=== PATIENT | male | born 1955 | race Caucasian/White ===

== ENCOUNTER 2019-05-13 12:01 | Inpatient (IN) | payer MEDICARE, BC ==
[~2019-05-13 12:01] MED LIST: Nitroglycerin 0.4 MG Tab.SL SL PRN; Ondansetron 4 MG Tab.DIS PO PRN
[2019-05-13] MEDS: Furosemide 20 MG Tab PO SCH (19:10)
[2019-05-13] MEDS: Metoprolol Tartrate 25 MG Tab PO SCH (20:17)
[2019-05-13] MEDS: Acyclovir 400 MG Tab PO SCH (20:17)
[2019-05-13] MEDS: glipiZIDE 5 MG Tab.ER PO SCH (20:18)
[2019-05-13] MEDS: guaiFENesin 600 MG Tab.ER PO SCH (20:18)
[2019-05-13] MEDS: metFORMIN 500 MG Tab PO SCH (21:17)
[2019-05-14] MEDS: Pantoprazole 40 MG Tab.CR PO SCH (06:35)
[2019-05-14] MEDS: Polyethylene Glycol 3350 Powder 17 GM Packet PO SCH (08:43)
[2019-05-14] MEDS: glipiZIDE 5 MG Tab.ER PO SCH ×2 (08:43→17:46)
[2019-05-14] MEDS: Cholecalciferol (Vitamin D3) 25 MCG Tab PO SCH (08:43)
[2019-05-14] MEDS: Potassium Chloride 20 MEQ Packet PO SCH (08:43)
[2019-05-14] MEDS: Metoprolol Tartrate 25 MG Tab PO SCH ×2 (08:44→21:29)
[2019-05-14] MEDS: Aspirin 81 MG Tab.EC PO SCH (08:44)
[2019-05-14] MEDS: guaiFENesin 600 MG Tab.ER PO SCH ×2 (08:45→21:29)
[2019-05-14] MEDS: Amiodarone 200 MG Tab PO SCH (08:46)
[2019-05-14] MEDS: Acyclovir 400 MG Tab PO SCH ×2 (08:46→21:29)
[2019-05-14] MEDS: atorvaSTATin 40 MG Tab PO SCH (08:46)
[2019-05-14] MEDS: Clopidogrel 75 MG Tab PO SCH (08:46)
[2019-05-14] MEDS: metFORMIN 500 MG Tab PO SCH ×2 (08:46→17:47)
[2019-05-14] MEDS: Furosemide 20 MG Tab PO SCH ×2 (08:47→15:49)
[2019-05-14] MEDS: Sulfamethoxazole/Trimethoprim 800-160 MG Tab PO SCH (08:49)
[2019-05-14] MEDS ORDERED: FERROUS FUMARATE PO SCH (09:00)
[2019-05-14] MEDS ORDERED: VITAMIN C PO SCH (09:00)
[2019-05-14 11:13] LABS: ANION GAP 13.5 mmol/L (5-15); CHLORIDE,CL 100 mmol/L (98-115); SODIUM,NA 139 mmol/L (136-145)
[2019-05-14] MEDS ORDERED: Magnesium Hydroxide 400 MG/5 ML Susp 30 ML Cup PO ONE (11:13)
[2019-05-14] MEDS: Calcium Citrate/Vitamin D3 315 MG-250 Unit Tab PO SCH ×3 (12:27→17:46)
[2019-05-14] MEDS: Ascorbic Acid 500 MG Tab PO SCH (12:48)
[2019-05-14] MEDS: Ferrous Sulfate 325 MG Tab PO SCH (12:48)
[2019-05-14] MEDS: Albuterol/Ipratropium 3.0-0.5 MG/3 ML Neb Soln NEB SCH ×3 (12:58→21:30)
--- NOTE | 2019-05-14 13:31 | CR ---
[id number] RAD/RAD Chest PA And Lateral EXAM: RAD Chest PA And Lateral CLINICAL DATA: COARSE BREATH SOUNDS COMPARISON: CORRELATION IS MADE WITH THE EXAM OF APRIL 07, 2011 FINDINGS: Cardiac surgical changes now are seen Old rib fractures are identified bilaterally There is pleural change on the right There is no pneumonia or edema The cardiomediastinal contour is slightly enlarged since the last exam IMPRESSION: PLEURAL REACTION AT BOTH LUNG BASES PERHAPS CHRONIC OLD RIB FRACTURES. SURGICAL CHANGES Brendan Nevarez MD 05/14/19 [id number] Thank you for allowing us to participate in the care of your patient.
--- NOTE | 2019-05-14 15:17 | HP ---
A chest x-ray will be obtained today due to the coarse lung sounds. The patient is agreeable to this and wishes to proceed. Lab results are pending and will be communicated to the next note. /[id number]/MODL
--- NOTE | 2019-05-14 15:32 | HP ---
HISTORY OF PRESENT ILLNESS: This is a 64-year-old male, who was transferred here from the [facility] in [place], [place]. The patient was discharged from [facility] yesterday and admitted here yesterday. The patient had a coronary artery bypass graft performed on 05/06/2019. Four vessels were bypassed. Following the surgery, Mr. Pereyra was transferred to the Cardiac Surgical Intensive Care Unit. He was extubated and intravenous medications were weaned as tolerated. Aspirin and Plavix were initiated postoperatively. He went into atrial fibrillation postoperatively, requiring IV amiodarone and magnesium. His last bout of atrial fibrillation was on 05/08/2019 and he maintained sinus rhythm until discharge. Physical and occupational therapy were consulted postoperatively and recommended an acute rehabilitation facility upon discharge. Social Work was consulted, and arranged for swing bed in the [facility]. The patient is using oxygen 1 L per nasal cannula at night to maintain oxygen saturations greater than 88%. The patient has a midsternal incision, which is healing without erythema, edema, or drainage. He has a right lower leg saphenous vein site, which is healing without erythema, edema, or drainage. The patient has multiple myeloma and is being considered for a stem cell transplant. Previous records that we had received had mentioned that he was status post stem cell transplant. However, this is a clarification: HE HAS NOT RECEIVED STEM CELL TRANSPLANT. He has a history of chronic low back pain and is on a fentanyl patch as well as oxycodone. He has diabetes mellitus and is taking metformin as well as glipizide. He has gastroesophageal reflux disease and is taking pantoprazole for that as well as GI protection. He has hypokalemia and is taking potassium supplementation. As previously mentioned, he has coronary artery disease and is status post four-vessel coronary artery bypass grafting. He is taking Plavix and metoprolol. He takes furosemide, which was ordered 20 mg by mouth b.i.d. for 5 days. He had postoperative atrial fibrillation, was placed on amiodarone orally, which he continues to be on. He is on a combination of Plavix and aspirin. He has a history of hypercholesterolemia and is taking atorvastatin. The patient has a followup at the [facility] on 06/03/2019 to resume discussion regarding stem cell transplant. However, he does not feel as though he is ready for this at this time. He wants to completely heal from his coronary artery bypass grafting surgery prior to being considered for stem cell transplant. The patient seems to be in fairly good spirits. He does cry easily, however. He reports quite a bit of sternal pain, especially when he is coughing. He states he is coughing up clear mucus on a regular basis. He is using his incentive spirometry. He is also using an inhaler called Aerobika, I am not familiar with this and we will do some research on this. He has not had any nebulizer treatments today. PHYSICAL EXAMINATION: VITAL SIGNS: He is afebrile at 96.9, pulse is 89, respirations 22, blood pressure 123/73, oxygen saturation is 93% on room air. SKIN: Warm and dry to touch. CARDIAC: Reveals S1, S2 to be normal. Rate and rhythm are regular. No murmur, click, or gallop is auscultated. He has a midsternal incision, which is clean and dry without any erythema, edema, or drainage. LUNGS: Sounds are coarse throughout and he does have a productive cough. ABDOMEN: Soft, somewhat distended. EXTREMITIES: Right lower extremity has a harvest saphenous vein grafting site, which is healing without erythema, edema, or drainage. The patient states that he has scratched this before, however, it looks like it is healing well. There is no pedal edema. IMPRESSION: 1. Status post coronary artery bypass grafting on 05/06/2019. The patient seems to be doing well. I think his biggest challenge at this point, especially with the productive cough and a coarse lung sound is prevention of pneumonia. He is being meticulous with his pulmonary toilet with incentive spirometry. We will add DuoNeb nebulizer treatments every 4 hours. 2. Multiple myeloma. He is being considered for stem cell transplant. However, this has not been performed as of yet. 3. Diabetes mellitus. An A1c will be checked today as well as a CBC, CMP. 4. Congestive heart failure. He is on Lasix. A BNP will be checked today. In research by the very competent nursing staff, we did research the Aerobika inhaler that the patient is using. It is an oscillating positive expiratory pressure therapy system and the patient is using this quite often as well. The remainder of his chronic diseases are stable at this time. We will monitor him in swing bed until he is ready for discharge. /[id number]/MODL MTDD
[2019-05-15] MEDS: Albuterol/Ipratropium 3.0-0.5 MG/3 ML Neb Soln NEB SCH ×5 (01:10→17:10)
[2019-05-15] MEDS: Pantoprazole 40 MG Tab.CR PO SCH (06:25)
[2019-05-15] MEDS: Ascorbic Acid 500 MG Tab PO SCH (08:30)
[2019-05-15] MEDS: Cholecalciferol (Vitamin D3) 25 MCG Tab PO SCH (08:30)
[2019-05-15] MEDS: glipiZIDE 5 MG Tab.ER PO SCH ×2 (08:30→17:58)
[2019-05-15] MEDS: Acyclovir 400 MG Tab PO SCH ×2 (08:30→20:45)
[2019-05-15] MEDS: Ferrous Sulfate 325 MG Tab PO SCH (08:30)
[2019-05-15] MEDS: Calcium Citrate/Vitamin D3 315 MG-250 Unit Tab PO SCH ×2 (08:30→17:58)
[2019-05-15] MEDS: metFORMIN 500 MG Tab PO SCH ×2 (08:30→17:58)
[2019-05-15] MEDS: atorvaSTATin 40 MG Tab PO SCH (08:30)
[2019-05-15] MEDS: Aspirin 81 MG Tab.EC PO SCH (08:31)
[2019-05-15] MEDS: Clopidogrel 75 MG Tab PO SCH (08:31)
[2019-05-15] MEDS: Furosemide 20 MG Tab PO SCH ×2 (08:31→15:09)
[2019-05-15] MEDS: guaiFENesin 600 MG Tab.ER PO SCH ×2 (08:40→20:46)
[2019-05-15] MEDS: Polyethylene Glycol 3350 Powder 17 GM Packet PO SCH (08:41)
[2019-05-15] MEDS: Potassium Chloride 20 MEQ Packet PO SCH (08:41)
[2019-05-15] MEDS: Amiodarone 200 MG Tab PO SCH (08:47)
[2019-05-15] MEDS: Metoprolol Tartrate 25 MG Tab PO SCH ×2 (08:47→20:45)
[2019-05-16] MEDS: Albuterol/Ipratropium 3.0-0.5 MG/3 ML Neb Soln NEB SCH ×5 (00:28→22:47)
[2019-05-16] MEDS: Acetaminophen 500 MG Tab PO PRN (05:19)
[2019-05-16] MEDS: Pantoprazole 40 MG Tab.CR PO SCH (06:26)
[2019-05-16] MEDS: glipiZIDE 5 MG Tab.ER PO SCH ×2 (08:09→18:15)
[2019-05-16] MEDS: Calcium Citrate/Vitamin D3 315 MG-250 Unit Tab PO SCH (08:09)
[2019-05-16] MEDS: Cholecalciferol (Vitamin D3) 25 MCG Tab PO SCH (08:09)
[2019-05-16] MEDS: Ferrous Sulfate 325 MG Tab PO SCH (08:10)
[2019-05-16] MEDS: atorvaSTATin 40 MG Tab PO SCH (08:10)
[2019-05-16] MEDS: guaiFENesin 600 MG Tab.ER PO SCH ×2 (08:10→21:30)
[2019-05-16] MEDS: Ascorbic Acid 500 MG Tab PO SCH (08:11)
[2019-05-16] MEDS: metFORMIN 500 MG Tab PO SCH ×2 (08:11→18:15)
[2019-05-16] MEDS: Clopidogrel 75 MG Tab PO SCH (08:11)
[2019-05-16] MEDS: Aspirin 81 MG Tab.EC PO SCH (08:11)
[2019-05-16] MEDS: Furosemide 20 MG Tab PO SCH ×2 (08:11→16:08)
[2019-05-16] MEDS: Amiodarone 200 MG Tab PO SCH (08:12)
[2019-05-16] MEDS: Acyclovir 400 MG Tab PO SCH ×2 (08:12→21:30)
[2019-05-16] MEDS: Polyethylene Glycol 3350 Powder 17 GM Packet PO SCH (08:13)
[2019-05-16] MEDS: fentaNYL 25 MCG/HR Transdermal Patch TRDERM SCH (08:17)
[2019-05-16] MEDS: Sulfamethoxazole/Trimethoprim 800-160 MG Tab PO SCH (08:18)
[2019-05-16] MEDS ORDERED: LORazepam 0.5 MG Tab PO PRN (09:42)
[2019-05-16] MEDS: Potassium Chloride 20 MEQ Tab.ER PO SCH (10:01)
[2019-05-16] MEDS: Metoprolol Tartrate 25 MG Tab PO SCH ×2 (10:01→21:30)
[2019-05-16] MEDS: Potassium Chloride 20 MEQ Packet PO SCH (11:36)
[2019-05-16] MEDS: VITAMIN D3 PO SCH (18:15)
[2019-05-16] MEDS: CALCIUM CARBONATE PO SCH (18:15)
[2019-05-16] MEDS: oxyCODONE 5 MG Tab PO PRN (21:38)
[2019-05-17] MEDS: oxyCODONE 5 MG Tab PO PRN ×5 (03:03→21:30)
[2019-05-17] MEDS: Pantoprazole 40 MG Tab.CR PO SCH (06:30)
[2019-05-17] MEDS: Albuterol/Ipratropium 3.0-0.5 MG/3 ML Neb Soln NEB SCH ×4 (06:30→22:39)
[2019-05-17] MEDS: VITAMIN D3 PO SCH ×2 (08:09→18:02)
[2019-05-17] MEDS: CALCIUM CARBONATE PO SCH ×2 (08:09→18:02)
[2019-05-17] MEDS: Ferrous Sulfate 325 MG Tab PO SCH (08:10)
[2019-05-17] MEDS: metFORMIN 500 MG Tab PO SCH ×2 (08:10→18:03)
[2019-05-17] MEDS: Ascorbic Acid 500 MG Tab PO SCH (08:10)
[2019-05-17] MEDS: atorvaSTATin 40 MG Tab PO SCH (08:10)
[2019-05-17] MEDS: Potassium Chloride 20 MEQ Tab.ER PO SCH (08:11)
[2019-05-17] MEDS: glipiZIDE 5 MG Tab.ER PO SCH ×2 (08:11→18:03)
[2019-05-17] MEDS: guaiFENesin 600 MG Tab.ER PO SCH ×2 (08:11→21:30)
[2019-05-17] MEDS: Furosemide 20 MG Tab PO SCH ×2 (08:12→16:17)
[2019-05-17] MEDS: Aspirin 81 MG Tab.EC PO SCH (08:12)
[2019-05-17] MEDS: Cholecalciferol (Vitamin D3) 25 MCG Tab PO SCH (08:12)
[2019-05-17] MEDS: Acyclovir 400 MG Tab PO SCH ×2 (08:12→21:30)
[2019-05-17] MEDS: Clopidogrel 75 MG Tab PO SCH (08:12)
[2019-05-17] MEDS: Polyethylene Glycol 3350 Powder 17 GM Packet PO SCH (08:15)
[2019-05-17] MEDS: Metoprolol Tartrate 25 MG Tab PO SCH ×2 (08:19→21:45)
[2019-05-17] MEDS: Amiodarone 200 MG Tab PO SCH (08:21)
[2019-05-18] MEDS: oxyCODONE 5 MG Tab PO PRN ×3 (02:50→22:55)
[2019-05-18] MEDS: Albuterol/Ipratropium 3.0-0.5 MG/3 ML Neb Soln NEB SCH ×4 (06:00→22:32)
[2019-05-18] MEDS: Pantoprazole 40 MG Tab.CR PO SCH (06:03)
[2019-05-18] MEDS: VITAMIN D3 PO SCH ×2 (08:05→17:02)
[2019-05-18] MEDS: CALCIUM CARBONATE PO SCH ×2 (08:05→17:02)
[2019-05-18] MEDS: guaiFENesin 600 MG Tab.ER PO SCH ×2 (08:05→22:33)
[2019-05-18] MEDS: Cholecalciferol (Vitamin D3) 25 MCG Tab PO SCH (08:06)
[2019-05-18] MEDS: atorvaSTATin 40 MG Tab PO SCH (08:06)
[2019-05-18] MEDS: Amiodarone 200 MG Tab PO SCH (08:06)
[2019-05-18] MEDS: metFORMIN 500 MG Tab PO SCH ×2 (08:07→17:01)
[2019-05-18] MEDS: Ascorbic Acid 500 MG Tab PO SCH (08:07)
[2019-05-18] MEDS: Aspirin 81 MG Tab.EC PO SCH (08:08)
[2019-05-18] MEDS: Furosemide 20 MG Tab PO SCH ×2 (08:08→17:01)
[2019-05-18] MEDS: glipiZIDE 5 MG Tab.ER PO SCH ×2 (08:08→17:01)
[2019-05-18] MEDS: Ferrous Sulfate 325 MG Tab PO SCH (08:08)
[2019-05-18] MEDS: Metoprolol Tartrate 25 MG Tab PO SCH ×2 (08:09→22:52)
[2019-05-18] MEDS: Potassium Chloride 20 MEQ Tab.ER PO SCH (08:09)
[2019-05-18] MEDS: Polyethylene Glycol 3350 Powder 17 GM Packet PO SCH (08:10)
[2019-05-18] MEDS: Acyclovir 400 MG Tab PO SCH ×2 (08:10→22:33)
[2019-05-18] MEDS: Clopidogrel 75 MG Tab PO SCH (08:10)
[2019-05-18] MEDS: Acetaminophen 500 MG Tab PO PRN (22:37)
[2019-05-19] MEDS: Albuterol/Ipratropium 3.0-0.5 MG/3 ML Neb Soln NEB SCH ×4 (05:39→22:15)
[2019-05-19] MEDS: Acetaminophen 500 MG Tab PO PRN (06:37)
[2019-05-19] MEDS: Pantoprazole 40 MG Tab.CR PO SCH (06:38)
[2019-05-19] MEDS: glipiZIDE 5 MG Tab.ER PO SCH ×2 (07:55→17:20)
[2019-05-19] MEDS: metFORMIN 500 MG Tab PO SCH ×2 (07:55→17:20)
[2019-05-19] MEDS: CALCIUM CARBONATE PO SCH ×2 (07:56→17:52)
[2019-05-19] MEDS: VITAMIN D3 PO SCH ×2 (07:56→17:52)
[2019-05-19] MEDS: Potassium Chloride 20 MEQ Tab.ER PO SCH (08:34)
[2019-05-19] MEDS: Furosemide 20 MG Tab PO SCH (08:34)
[2019-05-19] MEDS: Clopidogrel 75 MG Tab PO SCH (08:34)
[2019-05-19] MEDS: Cholecalciferol (Vitamin D3) 25 MCG Tab PO SCH (08:34)
[2019-05-19] MEDS: atorvaSTATin 40 MG Tab PO SCH (08:34)
[2019-05-19] MEDS: Ferrous Sulfate 325 MG Tab PO SCH (08:35)
[2019-05-19] MEDS: Ascorbic Acid 500 MG Tab PO SCH (08:35)
[2019-05-19] MEDS: Aspirin 81 MG Tab.EC PO SCH (08:35)
[2019-05-19] MEDS: Amiodarone 200 MG Tab PO SCH (08:35)
[2019-05-19] MEDS: Polyethylene Glycol 3350 Powder 17 GM Packet PO SCH (08:35)
[2019-05-19] MEDS: guaiFENesin 600 MG Tab.ER PO SCH ×2 (08:35→21:03)
[2019-05-19] MEDS: Acyclovir 400 MG Tab PO SCH ×2 (08:35→21:03)
[2019-05-19] MEDS: fentaNYL 25 MCG/HR Transdermal Patch TRDERM SCH (09:38)
[2019-05-19] MEDS: Sulfamethoxazole/Trimethoprim 800-160 MG Tab PO SCH (09:39)
[2019-05-19] MEDS: Metoprolol Tartrate 50 MG Tab PO SCH ×2 (09:43→21:03)
[2019-05-20] MEDS: Albuterol/Ipratropium 3.0-0.5 MG/3 ML Neb Soln NEB SCH (05:44)
[2019-05-20] MEDS: Pantoprazole 40 MG Tab.CR PO SCH (06:20)
--- NOTE | 2019-05-20 08:16 | PN ---
05/19/2019 PATIENT NAME: BENJAMÍN MILLER SUBJECTIVE: This is a 64-year-old male who was admitted to [facility] on 05/13/2019. He was transferred here from the [facility] in [place], [place]. The patient had a coronary artery bypass graft performed on 05/06/2019. He had CABG x4. Following the surgery, he did have atrial fibrillation requiring IV amiodarone. He continues on oral amiodarone. He also continues on metoprolol. He has been hypotensive here, and we have changed the dose from 75 mg b.i.d. to 50 mg b.i.d. He has been in a normal sinus rhythm. The patient had quite a bit of pulmonary phlegm last week, however, this has improved considerably. The patient has a history of multiple myeloma, is being considered for a stem cell transplant. He has a history of chronic low back pain and is receiving a fentanyl patch as well as oxycodone. He has a history of diabetes mellitus and is taking metformin as well as glipizide. He has gastroesophageal reflux disease and is taking pantoprazole for that as well as GI protection. He has a history of hypokalemia and is taking a potassium supplement. He was on furosemide 20 mg b.i.d. for 5 days. His lungs have cleared up and this will be discontinued. He has a history of postoperative atrial fibrillation and was placed on amiodarone, which he continues on. He is also taking a combination of Plavix and aspirin. He has a history of hypercholesterolemia. He is taking atorvastatin. He does have a followup with the [facility] on 06/03/2019 to resume discussion regarding stem cell transplant. The patient is progressing well with physical therapy, and we are anticipating possible discharge later this week. He will need to have outpatient cardiac rehab, which is offered at [facility] in [place]. OBJECTIVE: VITAL SIGNS: Temperature is 97, pulse 88, respirations 20, blood pressure of 105/61, O2 saturation 95% on room air. SKIN: Warm and dry to touch. CARDIAC: Reveals S1 and S2 to be normal. Rate and rhythm are regular. No murmur, click, or gallop is auscultated. LUNGS: Sound much better than last week with some fine rhonchi throughout. ABDOMEN: Soft and nontender. Bowel sounds present in all 4 quadrants. There is no pedal edema. SKIN: He does have a midsternal incision which is clear without erythema, edema, or drainage. He does have a small incision on the medial aspect of his right lower extremity, which is healing well from the harvest site. IMPRESSION: 1. Status post coronary artery bypass grafting. He is doing much better than he was on admission. He did have a productive cough and coarse lung sounds last week. This has cleared up with furosemide. He is also receiving DuoNeb treatments. 2. Multiple myeloma. He is being considered for stem cell transplant; however, this has not been performed as of yet. He does have a followup at [place] on 06/03/2019. 3. Diabetes mellitus. A1c was stable. 4. Congestive heart failure. Lasix was discontinued today. He had a BNP last week, which was 598. We will continue to follow and anticipate discharge for later this week. I have discussed the discharge planning with clinical social worker, MARGARITO Gómez. /[id number]/MODL
[2019-05-20] MEDS: Acyclovir 400 MG Tab PO SCH ×2 (08:25→20:47)
[2019-05-20] MEDS: Metoprolol Tartrate 50 MG Tab PO SCH ×2 (08:25→20:47)
[2019-05-20] MEDS: glipiZIDE 5 MG Tab.ER PO SCH ×2 (08:25→18:06)
[2019-05-20] MEDS: atorvaSTATin 40 MG Tab PO SCH (08:25)
[2019-05-20] MEDS: Ferrous Sulfate 325 MG Tab PO SCH (08:26)
[2019-05-20] MEDS: guaiFENesin 600 MG Tab.ER PO SCH ×2 (08:26→20:47)
[2019-05-20] MEDS: metFORMIN 500 MG Tab PO SCH ×2 (08:26→18:06)
[2019-05-20] MEDS: Ascorbic Acid 500 MG Tab PO SCH (08:27)
[2019-05-20] MEDS: Amiodarone 200 MG Tab PO SCH (08:27)
[2019-05-20] MEDS: Cholecalciferol (Vitamin D3) 25 MCG Tab PO SCH (08:27)
[2019-05-20] MEDS: Aspirin 81 MG Tab.EC PO SCH (08:27)
[2019-05-20] MEDS: Potassium Chloride 20 MEQ Tab.ER PO SCH (08:28)
[2019-05-20] MEDS: Clopidogrel 75 MG Tab PO SCH (08:28)
[2019-05-20] MEDS: CALCIUM CARBONATE PO SCH ×2 (08:29→18:07)
[2019-05-20] MEDS: VITAMIN D3 PO SCH ×2 (08:29→18:07)
[2019-05-20] MEDS ORDERED: Albuterol/Ipratropium 3.0-0.5 MG/3 ML Neb Soln NEB PRN (10:03)
[2019-05-21] MEDS: Pantoprazole 40 MG Tab.CR PO SCH ×2 (05:56→06:07)
[2019-05-21] MEDS: metFORMIN 500 MG Tab PO SCH ×2 (08:15→17:55)
[2019-05-21] MEDS: CALCIUM CARBONATE PO SCH ×2 (08:16→17:56)
[2019-05-21] MEDS: glipiZIDE 5 MG Tab.ER PO SCH ×2 (08:16→17:55)
[2019-05-21] MEDS: VITAMIN D3 PO SCH ×2 (08:16→17:56)
[2019-05-21] MEDS: Potassium Chloride 20 MEQ Tab.ER PO SCH (08:44)
[2019-05-21] MEDS: Aspirin 81 MG Tab.EC PO SCH (08:44)
[2019-05-21] MEDS: Amiodarone 200 MG Tab PO SCH (08:44)
[2019-05-21] MEDS: Ferrous Sulfate 325 MG Tab PO SCH (08:44)
[2019-05-21] MEDS: guaiFENesin 600 MG Tab.ER PO SCH ×2 (08:45→20:51)
[2019-05-21] MEDS: atorvaSTATin 40 MG Tab PO SCH (08:45)
[2019-05-21] MEDS: Metoprolol Tartrate 50 MG Tab PO SCH ×2 (08:45→20:50)
[2019-05-21] MEDS: Acetaminophen 500 MG Tab PO PRN (08:46)
[2019-05-21] MEDS: Acyclovir 400 MG Tab PO SCH ×2 (08:46→20:51)
[2019-05-21] MEDS: Ascorbic Acid 500 MG Tab PO SCH (08:46)
[2019-05-21] MEDS: Clopidogrel 75 MG Tab PO SCH (08:46)
[2019-05-21] MEDS: Cholecalciferol (Vitamin D3) 25 MCG Tab PO SCH (08:46)
[2019-05-21] MEDS: Sulfamethoxazole/Trimethoprim 800-160 MG Tab PO SCH (09:19)
[2019-05-22] MEDS: Pantoprazole 40 MG Tab.CR PO SCH (06:08)
[2019-05-22] MEDS: Cholecalciferol (Vitamin D3) 25 MCG Tab PO SCH (08:29)
[2019-05-22] MEDS: Potassium Chloride 20 MEQ Tab.ER PO SCH (08:29)
[2019-05-22] MEDS: Clopidogrel 75 MG Tab PO SCH (08:29)
[2019-05-22] MEDS: atorvaSTATin 40 MG Tab PO SCH (08:29)
[2019-05-22] MEDS: VITAMIN D3 PO SCH (08:29)
[2019-05-22] MEDS: CALCIUM CARBONATE PO SCH (08:29)
[2019-05-22] MEDS: Acyclovir 400 MG Tab PO SCH (08:29)
[2019-05-22] MEDS: Aspirin 81 MG Tab.EC PO SCH (08:30)
[2019-05-22] MEDS: Amiodarone 200 MG Tab PO SCH (08:30)
[2019-05-22] MEDS: Metoprolol Tartrate 50 MG Tab PO SCH (08:30)
[2019-05-22] MEDS: Ascorbic Acid 500 MG Tab PO SCH (08:30)
[2019-05-22] MEDS: metFORMIN 500 MG Tab PO SCH (08:30)
[2019-05-22] MEDS: Ferrous Sulfate 325 MG Tab PO SCH (08:30)
[2019-05-22] MEDS: guaiFENesin 600 MG Tab.ER PO SCH (08:30)
[2019-05-22 08:34] VITALS: BP 104/57; PULSE 74
[2019-05-22] MEDS: glipiZIDE 5 MG Tab.ER PO SCH (08:39)
[2019-05-22] MEDS: fentaNYL 25 MCG/HR Transdermal Patch TRDERM SCH (08:41)
--- NOTE | 2019-05-23 10:26 | DISCH ---
HOSPITAL COURSE: This is a 64-year-old male who was transferred to the [facility] from the [facility] in [place], [place]. He had a coronary artery bypass graft performed on 05/06/2019. Four vessels were bypassed. Following the procedure, he was transferred to the Cardiac Surgical Intensive Care Unit. Aspirin and Plavix were initiated postoperatively. He did go into atrial fibrillation postoperatively requiring IV amiodarone and magnesium. His last episode of atrial fibrillation was on 05/08/2019. He maintained sinus rhythm until discharge from [facility]. He is on oral amiodarone at this time. The patient has multiple myeloma and is being considered for a stem cell transplant. He follows up at [facility] in May to continue this process. He has not received stem cell transplant as of yet. He has a history of chronic low back pain and is using a fentanyl patch as well as oxycodone as needed. He has diabetes mellitus and is taking metformin and glipizide. He has gastroesophageal reflux disease and is taking pantoprazole for that as well as GI protection. He has been on a potassium supplement. He was taking furosemide for 5 days after his discharge from [facility]. The patient may not need to continue potassium supplementation. This will be checked on an outpatient basis. As previously mentioned, his furosemide was discontinued. He had postoperative atrial fibrillation and was placed on amiodarone orally which he continues to be on. He is also on a combination of Plavix as well as aspirin. He has a history of hypercholesterolemia and was previously taking simvastatin; however, this has been replaced with atorvastatin. He will be discharged on atorvastatin 40 mg p.o. daily. The patient has done well with physical therapy. He initially was coughing quite a bit with clear mucus. This has improved considerably. Due to hypotension, his metoprolol was decreased from 75 mg to 50 mg b.i.d. He is tolerating this well. PHYSICAL EXAM ON DISCHARGE: VITAL SIGNS: Temp is 97.5, pulse 74, respirations 16, blood pressure is 104/57, and O2 saturation is 92% on room air. SKIN: Warm and dry to touch. He does have a midsternal incision which is healing without erythema, edema, or drainage. He does have chest tube sites, two under the sternum as well as one on the left side. The left side chest tube site was draining. It was cultured and showed no growth after 4 days. He will continue with dressing change to this. He has a right lower extremity right saphenous vein harvest site which is healing without incident. CARDIAC: Reveals S1, S2 to be normal. Rate and rhythm are regular. No murmur, click, or gallop is auscultated. LUNGS: Clear without rales or wheezes. The patient does have some fine rhonchi, which has improved considerably since his admission. ABDOMEN: Soft, nontender. Bowel sounds present in all four quadrants. There is no pedal edema. IMPRESSION: 1. Status post coronary artery bypass grafting with need for extended swing bed for physical therapy. The patient has done well and is motivated to continue physical therapy on an outpatient. He also needs cardiac rehab; however, this will not be available at [facility] until mid May. 2. Multiple myeloma. He is being considered for a stem cell transplant. This has not been performed as of yet. He does follow up in May to continue the stem cell transplant consideration process. 3. Diabetes mellitus. A1c was acceptable. 4. Congestive heart failure. He was on Lasix; however, this has been discontinued. BNP was 598. He will continue on potassium supplementation. We will check his labs when he follows up in the clinic as an outpatient. 5. Anemia. He has been on ferrous sulfate as well as vitamin C, which will be continued when he goes home. He is being discharged in the care of his . He does not seem to have any concerns about being alone while his is at work. He will continue outpatient physical and occupational therapy until cardiac rehab is available at [facility]. New prescriptions for amiodarone, dose adjustment for metoprolol, and Plavix were sent to the pharmacy. Hard copies of Duragesic and oxycodone were sent to the pharmacy with the patient's . They will follow up with me in 7 to 10 days. Should they have any problems prior to that time, they were urged to call the clinic or hospital. /[id number]/MODL
== END 2019-05-22 13:35 | disposition home or self-care (01) | DRG 949 ==
LOC: KA.MS 16:43
DX: Z48.812 Encounter for surgical aftercare following surgery on the circulatory system (principal); C90.00 Multiple myeloma not having achieved remission; G89.29 Other chronic pain; M54.5 Low back pain; E11.9 Type 2 diabetes mellitus without complications; E78.00 Pure hypercholesterolemia, unspecified; K21.9 Gastro-esophageal reflux disease without esophagitis; I50.9 Heart failure, unspecified; D64.9 Anemia, unspecified; Z79.84 Long term (current) use of oral hypoglycemic drugs; Z79.01 Long term (current) use of anticoagulants; Z79.02 Long term (current) use of antithrombotics/antiplatelets; Z95.1 Presence of aortocoronary bypass graft
CPT/HCPCS: 36415; 71046; 80053; 82962; 83036; 83880; 85025; 87070; 87205; 94640; 97110-GP; 97161-GP; A9270-GY; J7620-GY

== ENCOUNTER 2021-11-23 17:45 | Inpatient (IN) | payer MEDICARE, BC ==
[2021-11-23] MEDS ORDERED: Sodium Chloride 0.9% 10 ML Syringe FLUSH PRN (18:13)
[2021-11-23 18:38] LABS: ANION GAP 16.3 mmol/L (5-15); CHLORIDE,CL 98 mmol/L (98-107); SODIUM,NA 136 mmol/L (136-145)
[2021-11-23] MEDS ORDERED: POMALIDOMIDE 2 MG PO SCH (19:00)
[2021-11-23] MEDS ORDERED: Furosemide 40 MG/4 ML VIAL IVPUSH ONE (19:50)
[2021-11-23] MEDS ORDERED: Acetaminophen/HYDROcodone 325-10 MG Tab PO PRN (21:27)
[2021-11-23] MEDS ORDERED: Polyethylene Glycol 3350 Powder 17 GM Packet PO PRN (21:27)
[2021-11-23] MEDS ORDERED: HYDROCORTISONE RECTAL PRN (21:27)
[2021-11-23] MEDS ORDERED: PROCHLORPERAZINE MALEATE 10 MG PO PRN (21:27)
[2021-11-23] MEDS ORDERED: Acetaminophen 500 MG Tab PO PRN (21:27)
[2021-11-23] MEDS ORDERED: ONDANSETRON 8 MG PO PRN (21:27)
[2021-11-23] MEDS ORDERED: IMMUNE GLOBULIN IV SCH (21:30)
[2021-11-23] MEDS ORDERED: Non-Formulary Medication 1 Each (Semaglutide [Ozempic] 1 MG/0.75 ML Pen.Injctr) SUBCUT SCH (21:30)
[2021-11-23] MEDS ORDERED: MALTOSE IV SCH (21:30)
[2021-11-23] MEDS ORDERED: [UNRECOGNIZED DRUG - OTHER] SQ SCH (21:30)
[2021-11-23] MEDS ORDERED: DARATUMUMAB SQ SCH (21:30)
[2021-11-23] MEDS ORDERED: HYALURONIDASE SQ SCH (21:30)
[2021-11-23] MEDS ORDERED: Dexamethasone 4 MG Tab PO SCH (21:30)
[2021-11-23] MEDS ORDERED: Sulfamethoxazole/Trimethoprim 800-160 MG Tab PO SCH (21:30)
[2021-11-23] MEDS ORDERED: ACETAMINOPHEN 500 MG PO PRN (22:45)
[2021-11-24 07:50] LABS: ANION GAP 13.5 mmol/L (5-15)
[2021-11-24] MEDS ORDERED: metFORMIN 500 MG Tab #OWN MED# PO SCH (08:00)
[2021-11-24] MEDS: CALCIUM CARBONATE PO SCH ×2 (08:02→17:05)
[2021-11-24] MEDS: VITAMIN D3 PO SCH ×2 (08:02→17:05)
[2021-11-24] MEDS ORDERED: POMALIDOMIDE 2 MG PO SCH (09:00)
[2021-11-24] MEDS ORDERED: Aspirin 81 MG Tab.EC #OWN MED# PO SCH (09:00)
[2021-11-24] MEDS ORDERED: PANTOPRAZOLE 40 MG PO SCH (09:00)
[2021-11-24] MEDS ORDERED: CHOLECALCIFEROL 2000 UNIT PO SCH (09:00)
[2021-11-24] MEDS ORDERED: GLIPIZIDE 10 MG PO SCH (09:00)
[2021-11-24] MEDS ORDERED: Metoprolol Tartrate 50 MG Tab PO SCH (09:00)
[2021-11-24] MEDS ORDERED: ACYCLOVIR 400 MG PO SCH (09:00)
[2021-11-24] MEDS ORDERED: Magnesium Sulfate/Water 4 GM in Premix Bag 1 BAG IV ONE (10:00)
[2021-11-24] MEDS ORDERED: Furosemide 40 MG/4 ML VIAL IVPUSH ONE (10:06)
[2021-11-24] MEDS ORDERED: Aspirin 81 MG Tab.EC PO SCH (13:31)
[2021-11-24] MEDS ORDERED: Ondansetron 4 MG Tab.DIS PO PRN (13:53)
[2021-11-24] MEDS ORDERED: Prochlorperazine 5 MG Tab PO PRN (13:55)
[2021-11-24] MEDS ORDERED: Pantoprazole 40 MG Tab.CR PO SCH (13:57)
[2021-11-24] MEDS ORDERED: Acetaminophen 500 MG Tab PO PRN (14:00)
[2021-11-24] MEDS ORDERED: Hydrocortisone 2.5% Crm 30 GM Tube TOP PRN (14:00)
[2021-11-24] MEDS ORDERED: Trolamine Salicylate/Aloe Vera 10% Crm 85 GM Tube TOP PRN ×2 (19:12→19:48)
[2021-11-24] MEDS ORDERED: Enoxaparin 100 MG/1 ML Syringe SUBCUT SCH (19:15)
[2021-11-24] MEDS: Enoxaparin 100 MG/1 ML Syringe SUBCUT SCH (20:51)
[2021-11-24] MEDS: Acetaminophen 500 MG Tab PO SCH (20:51)
[2021-11-24] MEDS: glipiZIDE 5 MG Tab.ER PO SCH (20:52)
[2021-11-24] MEDS: Metoprolol Tartrate 50 MG Tab PO SCH (20:52)
[2021-11-24] MEDS: Acyclovir 400 MG Tab PO SCH (20:52)
[2021-11-24] MEDS ORDERED: atorvaSTATin 40 MG Tab PO SCH (21:00)
[2021-11-25] MEDS ORDERED: Sulfamethoxazole/Trimethoprim 800-160 MG Tab PO SCH (07:30)
[2021-11-25 07:56] LABS: ANION GAP 10.2 mmol/L (5-15)
[2021-11-25] MEDS: Enoxaparin 100 MG/1 ML Syringe SUBCUT SCH (08:08)
[2021-11-25] MEDS: Acyclovir 400 MG Tab PO SCH (08:10)
[2021-11-25] MEDS: Acetaminophen 500 MG Tab PO SCH (08:11)
[2021-11-25] MEDS: glipiZIDE 5 MG Tab.ER PO SCH (08:12)
[2021-11-25] MEDS: Metoprolol Tartrate 50 MG Tab PO SCH (08:17)
[2021-11-25] MEDS ORDERED: Calcium Carbonate 600 MG Tab PO SCH ×2 (08:30→08:36)
[2021-11-25] MEDS: CALCIUM CARBONATE PO SCH (08:31)
[2021-11-25] MEDS: VITAMIN D3 PO SCH (08:31)
[2021-11-25] MEDS ORDERED: SEMAGLUTIDE 1 MG/0.75 ML SUBCUT SCH (09:00)
[2021-11-25] MEDS ORDERED: Cholecalciferol (Vitamin D3) 25 MCG Tab PO SCH (09:00)
[2021-11-25 10:01] LABS: O2 DELIVERY DEVICE NASAL CANNULA; PCO2 ARTERIAL 33 mmHG (35-45); PO2 ARTERIAL 71 mmHG (80-105)
[2021-11-25 10:02] LABS: BASE EXCESS ARTERIAL 2 mmol/L (-2-3); BICARBONATE,ARTERIAL 24.6 mmol/L (22-26)
[2021-11-25 10:03] LABS: O2 SATURATION ARTERIAL 95 % (95-98)
[2021-11-25] MEDS ORDERED: Metoprolol Tartrate 5 MG/5 ML SDV IVPUSH ONE (10:30)
[2021-11-25 11:29] VITALS: BP 111/68; PULSE 124
[2021-11-25] MEDS ORDERED: Piperacillin/Tazobactam 4.5 GM in Sodium Chloride 0.9% 100 ML IV SCH (12:30)
== END 2021-11-25 13:00 | DRG 291 ==
LOC: KA.ED 17:45 → KA.MS 20:18 → UNDOADMOB 20:20 → OBSVTOIN 11-24 10:56
PROVIDERS: ADMIT Student in an Organized Health Care Education/Training Program; ATTEND Nurse Practitioner Family
DX: I13.0 Hypertensive heart and chronic kidney disease with heart failure and stage 1 through stage 4 chronic kidney disease, or unspecified chronic kidney disease (principal); I50.9 Heart failure, unspecified; I50.23 Acute on chronic systolic (congestive) heart failure; J18.9 Pneumonia, unspecified organism; J96.01 Acute respiratory failure with hypoxia; Z94.84 Stem cells transplant status; C90.00 Multiple myeloma not having achieved remission; N18.31 Chronic kidney disease, stage 3a; E11.22 Type 2 diabetes mellitus with diabetic chronic kidney disease; E83.42 Hypomagnesemia; H72.91 Unspecified perforation of tympanic membrane, right ear; H72.90 Unspecified perforation of tympanic membrane, unspecified ear; I25.10 Atherosclerotic heart disease of native coronary artery without angina pectoris; K21.9 Gastro-esophageal reflux disease without esophagitis; E78.5 Hyperlipidemia, unspecified; H54.7 Unspecified visual loss; H91.90 Unspecified hearing loss, unspecified ear; Z86.16 Personal history of COVID-19; Z98.42 Cataract extraction status, left eye; Z79.01 Long term (current) use of anticoagulants; Z79.4 Long term (current) use of insulin; Z98.41 Cataract extraction status, right eye; Z87.19 Personal history of other diseases of the digestive system; I48.91 Unspecified atrial fibrillation; Z90.89 Acquired absence of other organs; Z98.890 Other specified postprocedural states; Z90.49 Acquired absence of other specified parts of digestive tract; E78.00 Pure hypercholesterolemia, unspecified; Z95.1 Presence of aortocoronary bypass graft; M19.90 Unspecified osteoarthritis, unspecified site; E11.9 Type 2 diabetes mellitus without complications; E55.9 Vitamin D deficiency, unspecified; D84.9 Immunodeficiency, unspecified; Z87.891 Personal history of nicotine dependence; Z88.8 Allergy status to other drugs, medicaments and biological substances; Z79.84 Long term (current) use of oral hypoglycemic drugs; Z79.82 Long term (current) use of aspirin; Z79.52 Long term (current) use of systemic steroids; Z79.899 Other long term (current) drug therapy; Z20.822 Contact with and (suspected) exposure to COVID-19
CPT/HCPCS: 36415; 36600; 71045; 80048; 80053; 82803; 83605; 83735; 83880; 84100; 84484; 85025; 85379; 86140; 87040; 93005; 93010; 96365; 96374; 96375; 96376; 99284; 99284-25; A9270-GY; G0378; J1650; J1940; J2543; J3370; J3475; J3490; J7040; J7050; U0002

== ENCOUNTER 2022-04-20 10:04 | Emergency (ER) | payer MEDICARE, BC ==
[2022-04-20] MEDS: Ondansetron 4 MG Tab.DIS PO ONE (10:59)
[2022-04-20 11:48] VITALS: PULSE 84
[2022-04-20] MEDS: Labetalol 100 MG/20 ML MDV IVPUSH ONE (12:09)
[2022-04-20] MEDS: Labetalol 100 MG/20 ML MDV ONE (12:10)
[2022-04-20 13:01] LABS: ANION GAP 11.4 mmol/L (5-15)
[2022-04-20 13:34] VITALS: BP 140/77
== END 2022-04-20 12:30 ==
LOC: KA.ED 10:04
DX: S06.6X0A Traumatic subarachnoid hemorrhage without loss of consciousness, initial encounter (principal); S22.42XA Multiple fractures of ribs, left side, initial encounter for closed fracture; S00.03XA Contusion of scalp, initial encounter; G91.9 Hydrocephalus, unspecified; I48.91 Unspecified atrial fibrillation; I10 Essential (primary) hypertension; E11.9 Type 2 diabetes mellitus without complications; Z95.1 Presence of aortocoronary bypass graft; Z88.8 Allergy status to other drugs, medicaments and biological substances; Z79.82 Long term (current) use of aspirin; Z79.899 Other long term (current) drug therapy; Z87.891 Personal history of nicotine dependence; W01.0XXA Fall on same level from slipping, tripping and stumbling without subsequent striking against object, initial encounter; Y92.009 Unspecified place in unspecified non-institutional (private) residence as the place of occurrence of the external cause
CPT/HCPCS: 36415; 70450; 71101-LT; 80053; 85025; 96374; 99285; 99285-25; A9270-GY; J3490